=== PATIENT | male | born 1995 | race Two or more races ===

== ENCOUNTER 2017-06-06 20:22 | Emergency (ER) | payer OTHER ==
[2017-06-06 20:42] VITALS: BP 120/80; PULSE 74; RESP 16; TEMP 98.2; O2SAT 96
[2017-06-06 21:53] LABS: COLOR YELLOW; LEUKOCYTE ESTERASE,URINE NEGATIVE (NEGATIVE); NITRITE,URINE NEGATIVE (NEGATIVE)
--- NOTE | 2017-06-06 23:11 | EDPHY ---
H & P Stated Complaint: LLQ pain Time Seen by Provider: 06/06/17 21:21 HPI/ROS: Chief Complaint: Abdominal pain HPI: 21 year male been having intermittent left lower quadrant abdominal pain for the last 2-3 days. Does not have a history of the same. No nausea vomiting diarrhea. Has had some constipation, last bowel movement was yesterday. No fevers or chills. Hurts to cough. Has not noticed any bulging. Pain is not been moving. No urinary urgency or frequency. Pain is improved at rest. Denies any heavy lifting. ROS: 10 point Review of Systems is negative except as noted in the HPI. PMH: Asthma Medications: None Allergies: None Social History: Positive smoking, positive alcohol, positive marijuana Family History: Diabetes Physical Exam: Gen: Awake, Alert, No Distress HEENT: Nose: no rhinorrhea Eyes: PERRLA, EOMI Mouth: Moist mucosa Neck: Supple, no JVD Chest: nontender, lungs clear to auscultation Heart: S1, S2 normal, no murmur Abd: Soft, very mild left lower quadrant tenderness, no guarding Genital: Patient is refusing genital exam. Back: no CVA tenderness, no midline tenderness Ext: no edema, non-tender Skin: no rash Neuro: CN II-XII intact, Sensation grossly intact, Strength 5/5 in bilateral upper and lower extremities - Personal History Current Tetanus/Diphtheria Vaccine: Yes Current Tetanus Diphtheria and Acellular Pertussis (TDAP): Yes - Medical/Surgical History Hx Asthma: Yes Hx Chronic Respiratory Disease: No Hx Diabetes: No Hx Cardiac Disease: No Hx Renal Disease: No Hx Cirrhosis: No Hx Alcoholism: No Hx HIV/AIDS: No Hx Splenectomy or Spleen Trauma: No Other PMH: asthma - Social History Smoking Status: Current every day smoker Constitutional: Initial Vital Signs Temperature (C) 36.8 C 06/06/17 20:40 Heart Rate 74 06/06/17 20:40 Respiratory Rate 16 06/06/17 20:40 Blood Pressure 120/80 06/06/17 20:40 O2 Sat (%) 96 06/06/17 20:40 O2 Delivery Mode Room Air Allergies/Adverse Reactions: No Known Allergies Allergy (Unverified 06/06/17 20:40) Home Medications: Medication Instructions Recorded NK [No Known Home Meds] 09/20/17 Medical Decision Making ED Course/Re-evaluation: 21-year-old male with mild left lower quadrant abdominal pain with a soft benign abdomen. Urinalysis is negative. No symptoms consistent with obstruction, intra-abdominal surgical process at this time. Symptoms likely secondary to some constipation. He has been instructed to increase his fluid intake. Avoid alcohol and marijuana. Follow up with [facility] in 3-4 days if symptoms are not improving. - Data Points Laboratory Results: 06/06/17 21:45 Urine Color YELLOW Urine Appearance CLEAR Urine pH 5.0 (5.0-7.5) Ur Specific [place] 1.016 (1.002-1.030) Urine Protein NEGATIVE (NEGATIVE) Urine Ketones NEGATIVE (NEGATIVE) Urine Blood NEGATIVE (NEGATIVE) Urine Nitrate NEGATIVE (NEGATIVE) Urine Bilirubin NEGATIVE (NEGATIVE) Urine Urobilinogen NEGATIVE EU EU (0.2-1.0) Ur Leukocyte Esterase NEGATIVE (NEGATIVE) Urine Glucose NEGATIVE (NEGATIVE) Departure - Departure Disposition: Home, Routine, Self-Care Clinical Impression: Abdominal pain, Constipation Condition: Good Instructions: Abdominal Pain (ED), Constipation (ED) Additional Instructions: Make sure to drink plenty of fluids. Try to avoid excessive alcohol and marijuana use. Return to the emergency department for worsening pain, uncontrolled nausea vomiting, fevers, chills, or any other concerns. Follow up at [facility] in 3-4 days if symptoms are not improving. Referrals: [facility],. [Clinic] - As per Instructions
== END 2017-06-06 23:24 | disposition home or self-care (01) ==
DX: K59.00 Constipation, unspecified (principal); J45.909 Unspecified asthma, uncomplicated; F17.200 Nicotine dependence, unspecified, uncomplicated

== ENCOUNTER 2018-04-09 19:48 | Emergency (ER) | payer OTHER ==
[2018-04-09 19:53] VITALS: BP 109/50
[2018-04-09] MEDS ORDERED: IBUPROFEN 600 MG TAB PO ONE (20:20)
--- NOTE | 2018-04-09 20:20 | EDPHY ---
H & P Stated Complaint: LEFT TOE KICKED BY ANOTHER PLAYER THEN FELL OVER IT Time Seen by Provider: 04/09/18 20:16 HPI/ROS: HPI: This is a 22-year-old male who presents with Chief Complaint: LEFT TOE KICKED BY ANOTHER PLAYER THEN FELL OVER IT Location: Left great and 2nd toe Quality: Injury Duration: Prior to arrival Signs and Symptoms: No bleeding, no radiation, no numbness, no weakness, no tingling, no incontinence, + decreased range of motion, no swelling, + pain, no fever Timing: Acute Severity: 02/24 Context: Patient reports that he was playing soccer approximately 1 hr prior to arrival when he sustained a right great toe and 2nd toe injury. Patient was wearing cleats. He reports that another player stepped on the top of his left foot with cleats and then he hyperextended his 1st and 2nd toe. He reports that he feels pain pain at the base of his left great toe and at the toe pad on the base of his foot. He also complains of pain at the MTP joint of his left 2nd toe. He denies any skin color changes, radiation, weakness. He does report some mild decreased range of motion of the flexion secondary to pain. Modifying Factors: He has not applied ice or taking any [id number] pain medication Comment: ROS: see HPI Constitutional: No fever, no chills, no weight loss Eyes: No blurred vision Respiratory: No shortness of breath, no cough Cardiovascular: No chest pain Gastrointestinal: No nausea, no vomiting no diarrhea Genitourinary: No dysuria Extremities: No myalgias Neurologic: No weakness, no numbness Skin: No rashes Hematologic: No bruising, no bleeding MEDICAL/SURGICAL/SOCIAL HISTORY: Medical history: Asthma Surgical history: Denies Social history: Current every day smoker CONSTITUTIONAL: Extremely polite and cooperative male, awake and alert, no obvious distress HEENT: Atraumatic and normocephalic. EXTREMITIES: 2/2 pulses, strength 5/5, left Ankle: Plantar flexion to 50, dorsiflexion to 20. Foot inversion to 35 degree. No tenderness/swelling Anterior talofibular ligament. No tenderness/swelling Calcaneofibular ligament , no tenderness/swelling posterior talofibular ligament, no tenderness/swelling posterior inferior tibiofibular ligament. Achilles tendon intact. Left great toe shows tenderness at the MCP and distal shaft with no skin color changes, edema, deformity. Patient also has tenderness at the 2nd digit PIP joint. DIP/ PIP/MCP flexion/extension intact with good light touch sensation. no deformities , no clubbing, no cyanosis or edema. NEUROLOGICAL: no focal neuro deficits. GCS 15. Light touch sensation intact. SKIN: Warm and dry, no erythema. no rash. Good capillary refill. Source: Patient Exam Limitations: No limitations - Personal History Current Tetanus/Diphtheria Vaccine: Yes - Medical/Surgical History Hx Asthma: Yes Hx Chronic Respiratory Disease: No Hx Diabetes: No Hx Cardiac Disease: No Hx Renal Disease: No Hx Cirrhosis: No Hx Alcoholism: No Hx HIV/AIDS: No Hx Splenectomy or Spleen Trauma: No Other PMH: asthma - Social History Smoking Status: Current every day smoker Constitutional: Initial Vital Signs Temperature (C) 36.3 C 04/09/18 19:50 Heart Rate 98 04/09/18 19:50 Respiratory Rate 20 04/09/18 19:50 Blood Pressure 109/50 L 04/09/18 19:50 O2 Sat (%) 95 04/09/18 19:50 O2 Delivery Mode Room Air Allergies/Adverse Reactions: No Known Allergies Allergy (Unverified 04/09/18 19:50) Home Medications: Medication Instructions Recorded NK [No Known Home Meds] 06/06/17 Medical Decision Making - Diagnostics Imaging Results: Imaging Impressions Foot X-Ray 04/09/18 20:20 Impression: Negative. No acute fracture. Procedures: Procedure: Splint placement. Julita-taped was applied by the Emergency Room front end technician. After application of the splint I returned and re-examined the patient. The splint was adequately immobilizing the joint and distal to the splint the patient's circulation and sensation was intact. ED Course/Re-evaluation: Left foot x-ray ordered Patient given ibuprofen 600 mg and ice pack applied. X-ray my read shows no fracture, dislocation. Great toe and 2nd toe julita-taped. Advised supportive care. No signs of neurovascular compromise/tenting of skin/compartment syndrome/ extremities and joints examined above and below area of concern and are neurovascularly intact. This patient was seen under the supervision of my secondary supervising physician. I evaluated care for this patient independently. Discussed this patient with Dr. Morris. Differential Diagnosis: Ankle injury differential diagnosis includes but is not limited to tibia fracture, fibula fracture, metatarsal fracture, LisFranc fracture, achilles tendon rupture, sprain. - Data Points Medications Given: Discontinued Medications Ibuprofen (Motrin) 600 mg PO EDNOW ONE Stop: 04/09/18 20:21 Last Admin: 04/09/18 20:28 Dose: 600 mg Departure - Departure Disposition: Home, Routine, Self-Care Clinical Impression: Sprain of toe, great, left Qualifiers: Encounter type: initial encounter Qualified Code(s): S93.502A - Unspecified sprain of left great toe, initial encounter Sprain of toe, second, left Qualifiers: Encounter type: initial encounter Qualified Code(s): S93.505A - Unspecified sprain of left lesser toe(s), initial encounter Condition: Good Instructions: Foot Sprain (ED) Additional Instructions: Wear the julita tape of the 1st and 2nd toe until pain free. Avoid any vigorous activity until pain free. Take Tylenol 650 mg every 4 hours and/or Ibuprofen 600 mg every 8 hours with food as needed for pain. Apply ice for 30 minutes at a time; 2-3 times per day for the next 1-2 days. The x-rays obtained in the emergency department today demonstrate no evidence of an obvious fracture. Sometimes fractures are not obvious on the initial set of x-rays performed in the ED. For this reason, you should have repeat x-rays performed in 7-10 days if you are having any pain exclude the possibility of an occult fracture. Referrals: Calvin Wood MD [Doctor of Podiatric Medicine] - As per Instructions
== END 2018-04-09 20:52 | disposition home or self-care (01) ==
DX: S93.502A Unspecified sprain of left great toe, initial encounter (principal); S93.505A Unspecified sprain of left lesser toe(s), initial encounter; F17.200 Nicotine dependence, unspecified, uncomplicated; J45.909 Unspecified asthma, uncomplicated; W50.1XXA Accidental kick by another person, initial encounter; Y99.8 Other external cause status; Y93.66 Activity, soccer

== ENCOUNTER 2018-12-23 10:52 | Emergency (ER) | payer OTHER ==
[2018-12-23 10:57] VITALS: BP 133/62
--- NOTE | 2018-12-23 10:59 | EDPHY ---
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 He denies fever, difficulty swallowing, white exudate, cough, swollen glands. He reports he does have a history of allergies and has not been taking any antihistamines. Denies any vision changes or eye discharge. Patient reports that he took a mid term today but does not feel like he can go to school the rest of the day or tomorrow. Modifying Factors: No [id number] medications tried. Comment: ROS: A comprehensive 10 system review of systems is otherwise negative aside from elements mentioned in the history of present illness. MEDICAL/SURGICAL/SOCIAL HISTORY: Medical history: Generally healthy. Does not take any regular medications. Surgical history: Denies Social history: International student at [employer]. Tobacco user. Family history noncontributory. CONSTITUTIONAL: Well-developed, well-nourished, extremely well-appearing young adult male, awake and alert, no obvious distress HEENT: Atraumatic and normocephalic, PERRL, EOMI. Conjunctiva bilateral reddened, no discharge. Nares patent; no rhinorrhea; no nasal mucosal edema. Tympanic membranes clear. Oropharynx clear, no tonsillar hypertrophy, no tonsillar erythema, no exudate and moist pink mucosa. Airway patent. No lymphadenopathy. No meningismus. Cardiovascular: Normal S1/S2, regular rate, regular rhythm, without murmur rub or gallop. PULMONARY/CHEST: Symmetrical and nontender. Clear to auscultation bilaterally. Good air movement. No accessory muscle usage. ABDOMEN: Soft, nondistended, nontender, no rebound, no guarding, no peritoneal signs, no masses or organomegaly. No CVAT. EXTREMITIES: 2/2 pulses, strength 5/5, no deformities, no clubbing, no cyanosis or edema. NEUROLOGICAL: no focal neuro deficits. GCS 15. Speech clear. SKIN: Warm and dry, no erythema. no rash. Good capillary refill. Source: Patient Exam Limitations: No limitations - Medical/Surgical History Hx Asthma: Yes Hx Chronic Respiratory Disease: No Hx Diabetes: No Hx Cardiac Disease: No Hx Renal Disease: No Hx Cirrhosis: No Hx Alcoholism: No Hx HIV/AIDS: No Hx Splenectomy or Spleen Trauma: No Other PMH: asthma - Social History Smoking Status: Current every day smoker Constitutional: Initial Vital Signs Temperature (C) 36.8 C 12/23/18 10:55 Heart Rate 59 L 12/23/18 10:55 Blood Pressure 133/62 H 12/23/18 10:55 O2 Sat (%) 97 12/23/18 10:55 O2 Delivery Mode Room Air Allergies/Adverse Reactions: No Known Allergies Allergy (Unverified 12/23/18 10:55) Home Medications: Medication Instructions Recorded Benzocaine/Menthol 15/4 [Cepacol 1 each MM Q4 PRN #15 lozenge 12/23/18 Lozenge] Levocetirizine Dihydrochloride 5 mg PO HS #30 tablet 12/23/18 [Xyzal] Olopatadine 0.1% [Patanol 0.1% 1 drops EACHEYE BID 5 Days #1 12/23/18 Opht Drop (RX)] bottle Medical Decision Making ED Course/Re-evaluation: Vital signs reviewed and stable upon arrival. Rapid strep obtained and negative. No signs of tonsillar abscess, meningitis, dehydration Suspect this is allergic versus viral in nature Given a prescription for Xyzal, Patanol and Cepacol lozenges School excuse provided per request. This patient was seen under the supervision of my primary supervising physician. I evaluated care for this patient independently. Differential Diagnosis: Differential diagnosis includes but is not limited to allergic conjunctivitis, viral conjunctivitis, bacterial conjunctivitis. Departure - Departure Disposition: Home, Routine, Self-Care Clinical Impression: Conjunctivitis of both eyes Qualifiers: Conjunctivitis type: acute Acute conjunctivitis type: viral Qualified Code(s): B30.9 - Viral conjunctivitis, unspecified Pharyngitis Qualifiers: Pharyngitis/tonsillitis etiology: unspecified etiology Qualified Code(s): J02.9 - Acute pharyngitis, unspecified Condition: Good Instructions: Pharyngitis (ED), Conjunctivitis (ED) Additional Instructions: Take Xyzal every evening. Apply Patanol 1 drop every 12 hr while awake x 5 days. Please avoid using your hands to touch your eyes. Wash your hands frequently with mild soap and water. Apply cool compresses for 15-20 minutes at a time several times per day for the next 1-2 days. Use Cepacol lozenges every 4 hours as needed for sore throat. Referrals: [facility],. [Clinic] - As per Instructions Stand Alone Forms: School Excuse Prescriptions: Benzocaine/Menthol 15/4 [Cepacol Lozenge] 1 each MM Q4 PRN #15 lozenge PRN Reason: Sore Throat Levocetirizine Dihydrochloride [Xyzal] 5 mg PO HS #30 tablet Olopatadine 0.1% [Patanol 0.1% Opht Drop (RX)] 1 drops EACHEYE BID 5 Days #1 bottle
== END 2018-12-23 11:26 | disposition home or self-care (01) ==
DX: B30.9 Viral conjunctivitis, unspecified (principal); J02.9 Acute pharyngitis, unspecified; F17.200 Nicotine dependence, unspecified, uncomplicated